=== PATIENT | female | born 1950 | race Caucasian/White ===

== ENCOUNTER → 2016-11-01 | Outpatient (CLI) | payer MEDICARE, OTHER ==
[~2016-11-01] MED LIST: ALTACE DPS10 MG PO; ASPIRIN EC81 MG PO; ATIVAN-DPS0.5 MG PO; BENTYL-DPS20 MG PO; GARLIC1000 MG PO; GAS RELIEF80 MG PO; LEXAPRO DPS10 MG PO; MELATONIN2.5 MG PO; MIRALAX PACKET17 GM PO; OMEGA-3 DPS1000 MG PO; RANITIDINE HCL150 M1 PO; RISPERDAL0.5 MG PO; SERTRALINE HCL100 MG PO; THERA1 EACH PO; TRIAMTERENE-HC1 EACH PO; TUMS DPS500 MG PO; VITAMIN B-12500 MCG PO; ZITHROMAX250 MG PO; ZOCOR DPS10 MG PO
== END | disposition home or self-care (01) ==
LOC: RAD.S 08:15
DX: R10.9 Unspecified abdominal pain (principal); K80.20 Calculus of gallbladder without cholecystitis without obstruction; D17.5 Benign lipomatous neoplasm of intra-abdominal organs; R14.0 Abdominal distension (gaseous); K82.9 Disease of gallbladder, unspecified

== ENCOUNTER 2016-11-16 15:36 | Observation (INO) | payer MEDICARE, OTHER ==
[~2016-11-16] VITALS: Ht 162.6 cm; Wt 68.1 kg
[2016-11-18] MEDS ORDERED: ZOCOR DPS10 MG PO (10:49)
[2016-11-18] MEDS ORDERED: LEXAPRO DPS10 MG PO (10:53)
[2016-11-18] MEDS ORDERED: RISPERDAL0.5 MG PO (10:53)
[2016-11-18] MEDS ORDERED: ALTACE DPS10 MG PO (10:53)
[2016-11-18] MEDS ORDERED: TRIAMTERENE-HC1 EACH PO (10:53)
[2016-11-18] MEDS ORDERED: MELATONIN2.5 MG PO (10:54)
[2016-11-18] MEDS ORDERED: BENTYL-DPS20 MG PO (10:54)
[2016-11-18] MEDS ORDERED: ASPIRIN EC81 MG PO (10:54)
[2016-11-18] MEDS ORDERED: TUMS DPS500 MG PO (10:55)
[2016-11-18] MEDS ORDERED: OMEGA-3 DPS1000 MG PO (10:55)
[2016-11-18] MEDS ORDERED: GAS RELIEF80 MG PO (10:55)
[2016-11-18] MEDS ORDERED: THERA1 EACH PO (10:55)
[2016-11-18] MEDS ORDERED: ATIVAN-DPS0.5 MG PO (10:56)
[2016-11-18] MEDS ORDERED: GARLIC1000 MG PO (10:56)
[2016-11-18] MEDS ORDERED: VITAMIN B-12500 MCG PO (10:56)
[2017-03-21] MEDS ORDERED: ZITHROMAX250 MG PO (10:45)
[2017-03-21] MEDS ORDERED: RANITIDINE HCL150 M1 PO (10:45)
[2017-03-21] MEDS ORDERED: SERTRALINE HCL100 MG PO (10:45)
[2017-03-21] MEDS ORDERED: MIRALAX PACKET17 GM PO (10:45)
== END 2016-11-17 10:04 | disposition home or self-care (01) ==
LOC: 4PCU 15:36
PROVIDERS: ADMIT Surgery
DX: T17.918A Gastric contents in respiratory tract, part unspecified causing other injury, initial encounter (principal); I10 Essential (primary) hypertension; K21.9 Gastro-esophageal reflux disease without esophagitis

== ENCOUNTER → 2016-11-21 | Outpatient (CLI) | payer MEDICARE, OTHER | END | disposition home or self-care (01) | LOC: RAD.S 15:15 | DX: R06.02 Shortness of breath (principal) ==

== ENCOUNTER 2017-03-31 14:22 | Emergency (ER) | payer MEDICARE, OTHER ==
--- NOTE | 2017-04-01 23:41 | ER ---
ADMIT: 03/31/2017 RM/LOC: ER [facility] MR#: [id number] [place], [place] [id number] RILEY JOHNSON [address] [place] [address] Emergency Room Report SEX: F AGE: 66 : 1950 DATE: 03/31/2017 TIME: 1422 hours Please refer to my T-sheet for complete H and P. HISTORY OF PRESENT ILLNESS: Briefly, the patient is a 66-year-old, who says she is coming in with what she thinks is panic. She says she is shaking, cannot stop shaking. She has been having problems with this in the past. She recently was taken off she said her Xanax and placed her on hydroxyzine, and her had surgery today and he is planning of more surgeries. She has just been under more stress. She cannot stop shaking. No fevers. No chills. No chest pain. PHYSICAL EXAMINATION: VITAL SIGNS: Stable. Her temp is 97.7. GENERAL: Anxious. HEENT: Grossly normal. LUNGS: Clear. HEART: Regular. ABDOMEN: Soft. SKIN: Rash. NEURO: She is shaking, but nonfocal, and anxious. EMERGENCY DEPARTMENT COURSE: I gave her Ativan 1.5 mg IM, fast improvement in her symptoms. I had a long discussion. We are going to place her back on her Xanax with close followup. ASSESSMENT: Anxiety with recent stressors in her life. PLAN: Restart Xanax. Follow up with [facility] this week. Return if worse. Kwadwo Rodriguez MD/ [employer]inyl JOB #: [id number] CC: Dillon Prescott MD, Attending Physician UNKNOWN, Family Physician
== END 2017-03-31 15:30 | disposition home or self-care (01) ==
LOC: ER 14:22
DX: F41.9 Anxiety disorder, unspecified (principal); I10 Essential (primary) hypertension; K21.9 Gastro-esophageal reflux disease without esophagitis

== ENCOUNTER → 2017-04-15 | Outpatient (CLI) | payer MEDICARE, OTHER | END | disposition home or self-care (01) | LOC: RAD.S 11:30 | DX: R10.9 Unspecified abdominal pain (principal); R06.02 Shortness of breath; R91.8 Other nonspecific abnormal finding of lung field; Z87.01 Personal history of pneumonia (recurrent) ==